=== PATIENT | female | born 1985 | race Caucasian/White ===

== ENCOUNTER 2020-06-08 17:43 | Emergency (ER) | payer OTHER ==
[~2020-06-08 17:43] MED LIST: IBUPROFEN600 MG PO; PHENERGAN 25 MG25 M1 PO; ZOFRAN4 MG PO
[2020-06-08 20:06] LABS: HEMOGLOBIN 15.3 gm/dl (12.3-15.3); RED BLOOD COUNT 4.92 M/UL (4.00-5.10); WHITE BLOOD COUNT 7.6 K/UL (4.5-11.0)
[2020-06-08 20:14] LABS: BUN/CREATININE RATIO 16 (0-10)
[2020-06-09] MEDS ORDERED: LODINE CAP 300300 MG PO (02:55)
== END 2020-06-09 03:07 | disposition home or self-care (01) ==
LOC: ER1 17:43
PROVIDERS: Family Medicine
DX: R07.81 Pleurodynia (principal); R06.02 Shortness of breath; K21.9 Gastro-esophageal reflux disease without esophagitis; Z20.822 Contact with and (suspected) exposure to COVID-19; Z90.49 Acquired absence of other specified parts of digestive tract; Z90.89 Acquired absence of other organs; Z90.710 Acquired absence of both cervix and uterus; Z91.013 Allergy to seafood
CPT/HCPCS: 0240U; 71045; 80053; 81001; 83690; 84703; 85025; 99285

== ENCOUNTER → 2020-11-30 | Outpatient (CLI) | payer OTHER ==
[~2020-11-30] MED LIST changes: +LODINE CAP 300300 MG PO
== END ==
LOC: KOH-I 16:30
DX: J32.9 Chronic sinusitis, unspecified (principal); J34.2 Deviated nasal septum
CPT/HCPCS: 70486

== ENCOUNTER → 2021-05-28 | Day surgery (SDC) | payer BC, OTHER ==
[~2021-05-28] MED LIST changes: +AIMOVIG AU140 MG/1 M SQ; +DULOXETINE HCL60 MG PO; +ESTRADIOL2 MG PO; +INDERAL TAB 2020 MG PO; +LEVOCETIRIZINE D5 MG PO; +QUETIAPINE FUMA50 MG PO; +TIZANIDINE HCL4 MG PO
== END | disposition home or self-care (01) ==
LOC: OR 06:36
DX: J34.3 Hypertrophy of nasal turbinates (principal); J34.2 Deviated nasal septum; K02.9 Dental caries, unspecified; J45.909 Unspecified asthma, uncomplicated; G43.909 Migraine, unspecified, not intractable, without status migrainosus; F41.9 Anxiety disorder, unspecified; Z91.013 Allergy to seafood; Z79.899 Other long term (current) drug therapy
CPT/HCPCS: J0690; J1100; J2001; J2250; J2405; J2704; J3010; J7030; J7120

== ENCOUNTER 2021-06-07 09:38 | Emergency (ER) | payer BC, OTHER ==
[2021-06-07 10:41] LABS: HEMOGLOBIN 14.3 gm/dl (12.3-15.3); RED BLOOD COUNT 4.6 M/UL (4.00-5.10); WHITE BLOOD COUNT 7.5 K/UL (4.5-11.0)
[2021-06-07 11:26] LABS: BUN/CREATININE RATIO 22 (0-10)
[2021-06-07] MEDS ORDERED: IBUPROFEN600 MG PO (13:20)
== END 2021-06-07 14:04 | disposition home or self-care (01) ==
LOC: ER1 09:38
PROVIDERS: Emergency Medicine
DX: M54.2 Cervicalgia (principal); Z91.013 Allergy to seafood
CPT/HCPCS: 80053; 84703; 85025; 85652; 86140; 96374; 96375; 99284; J1100; J2270; J2405; Q9967